=== PATIENT | female | born 1980 | race Caucasian/White ===

== ENCOUNTER 2020-07-12 16:44 | Inpatient (IN) | payer OTHER, SELFPAY ==
[2020-07-12 18:44] VITALS: BMI 24.3
[2020-07-13] VITALS (17 sets, daily range): BP systolic 119–164; BP diastolic 69–92; PULSE 46–83; RESP 16–19; TEMP 35.8–36.5; O2SAT 94–100
[2020-07-13] MEDS: Morphine Sulfate 4 MG/ML CARTRIDGE 3 MG IVPUSH ×2 (03:35→09:06)
[2020-07-13] MEDS: ondansetron HCL 4 MG/2 ML VIAL IVPUSH (03:35)
[2020-07-13] MEDS: Piperacillin Sodium/Tazobactam 3.375 GM in 0.9 % Sodium Chloride 50 ML IV (03:35)
[2020-07-13] MEDS: Lactated Ringers 1,000 ML 80 ML IVCONT ×2 (06:44→16:14)
--- NOTE | 2020-07-13 09:04 | PM.PNGS ---
Subjective Subjective Interval history: had pain overnight comfortable now - got pain meds Physical Exam Vital Signs and I&O and Narrative: Vital Signs and I&O: Vital Signs Temp 97.4 F 07/13/20 04:00 Pulse 60 07/13/20 04:00 Resp 16 07/13/20 06:48 BP 119/69 07/13/20 04:00 Pulse Ox 99 07/13/20 04:00 Intake & Output 07/12/20 07/13/20 07/13/20 18:59 06:59 18:59 Intake Total 170 / 170 Balance 170 / 170 Weight 136 lb 15.994 oz Intake: Intake, Oral [place] unt 120 / 120 Intake, IV Amoun t 50 / 50 Piperacillin S odium/Tazobactam 50 / 50 3.375 gm In 0. 9 % Sodium Chloride 50 ml @ 100 mls/hr IV Q6H ROBINA Rx#:[id number] Other: Number of Unmeas ured Voids 1 Urine Bathroom Urine Color Yellow Body Mass Index 24.3 Eyes: Sclerae: abnormal sclerae Cardio: Rhythm: regular rhythm GI: Palpation (GI): Soft to palpation, Tenderness to palpation present (GI) in the epigastrum and in the RUQ, no guarding and No Rebound tenderness present Progress Note: A&P Assessment and plan (1) Gallstone: Problem details: CT scan shows gallstone in neck likely causing pain no other pathology Status: Acute Assessment and Plan: will proceed with lap nona today explained technique of procedure, poss. conversion to open reviewed risks including but not limited to bleeding, infections, bowel injury, injury to urinary tract and liver she has given consent Fall Risk Details Current Medications: Current Medications Generic Name Dose Route Start Last Admin Trade Name Freq PRN Reason Stop Dose Admin Acetaminophen 650 mg 07/13/20 00:00 Acetaminophen 325 Mg Tablet PO Q6H PRN Fever Lactated Ringer's 1,000 mls @ 80 mls/hr 07/13/20 06:00 07/13/20 06:44 Lr IVCONT 80 mls/hr .[id number] ROBINA Administration Piperacillin Sod/Tazobactam 50 mls @ 100 mls/hr 07/13/20 00:00 07/13/20 06:49 Sod 3.375 gm/ Sodium Chloride IV Infused Q6H ROBINA Infusion Morphine Sulfate 3 mg 07/13/20 00:00 07/13/20 03:35 Morphine Sulfate 4 Mg/Ml Cartridge IVPUSH 3 mg Q3H PRN Administration Pain, Severe (Pain Scale 7-10) Ondansetron HCl 4 mg 07/13/20 00:00 07/13/20 03:35 Ondansetron Hcl 4 Mg/2 Ml Vial IVPUSH 4 mg Q8H PRN Administration Nausea Oxycodone HCl 5 mg 07/13/20 00:00 Oxycodone Hcl Immed Release 5 Mg Tablet PO Q4H PRN Pain, Moderate (Pain Scale 4-6 Time Spent With Patient Time: Total time spent is greater than 50% in coordination of care (as documented) at patient's floor/unit and/or counseling patient: Time with patient: 15 - 24 minutes
--- NOTE | 2020-07-13 11:59 | MHC.CM.PN ---
pt lives c her son in her home. she reports being independent in her care. she works a job and drives a car. pt's son a family that live in the area can help her c any needs she may have. this will include a ride home at dc. pt denies the need for vna at dc. dc plan is home no svcs. cm to cont. to follow.
--- NOTE | 2020-07-13 12:17 | HO.ANESPROP2 ---
FORMERLY [facility] Social History Social History Advance Directives: No Advance Directives Information Provided: No service: No Current occupational status: employed Meds Allergies Allergy/AdvReac Type Severity Reaction Status Date / Time Sulfa (Sulfonamide Allergy Unknown Hives Unverified 07/12/20 21:49 Antibiotics) [SULFA (SULFONAMIDE ANTIBIOTICS)] Home Medications Medication Instructions Recorded Confirmed Type citalopram [Celexa] 20 mg PO DAILY 07/12/20 07/12/20 History tizanidine [Zanaflex] 6 mg PO TID 07/12/20 07/12/20 History Exam Exam Date and Time: July 13, 2020 1217 Height,Weight and Vital Signs: Height 5 ft 3 in Weight 62.142 kg Last Vital Signs Temp 96.5 F L 07/13/20 08:00 Pulse 60 07/13/20 08:00 Resp 19 07/13/20 08:00 BP 128/74 07/13/20 08:00 Pulse Ox 98 07/13/20 08:00 Airway Mallampati Class: II TM Dist: >3cm Neck ROM: Full Loose/Missing/Broken Teeth: No Heart: rrr cta Assessment and Plan Assessment Anesthesia Assessment: Anesthesia Plan Discussed, Consent Obtained and Chart Reviewed Final Anesthetic Review NPO: Yes ASA Class: II Final Preanesthetic Review: No Changes in Pt Med Stat, Meds & Allergies Reviewed, Consent Obtained/Reviewed, Med/Surg/Anes Hx Reviewed and Anes Risks/Benef Reviewed Patient Risk: Intermediate Procedure Risk: Low Assessment/Block/Sedation in SS: Assess/Block/Sedation-SS Anesthetic Plan Anesthetic Plan: GA Disposition: Standard PACU
[2020-07-13] MEDS: LORazepam 2 MG/ML VIAL 1 MG IVPUSH (13:35)
--- NOTE | 2020-07-13 13:37 | PM.OP ---
Brief Operative Note Date of procedure: 07/13/20 Pre-op diagnosis: gallstones Post-op diagnosis: other (acute cholecystitis) Procedure: laparoscopic cholecystectomy Anesthesia: SIERRA Surgeon: Hao Glass Community Advocate: Judith Porras Estimated blood loss (mL): 20 Urine output (mL): 0 Pathology: other (gallbladder) Condition: stable Disposition: PACU
--- NOTE | 2020-07-13 17:34 | PM.PNGS ---
Subjective Subjective Interval history: pt underwent uneventful lap nona earlier says she has incisional pain but ready to go home tolerating diet now Physical Exam Vital Signs and I&O and Narrative: Vital Signs and I&O: Vital Signs Temp 96.7 F L 07/13/20 16:04 Pulse 75 07/13/20 16:04 Resp 18 07/13/20 16:04 BP 151/85 H 07/13/20 16:04 Pulse Ox 100 07/13/20 16:04 Intake & Output 07/12/20 07/13/20 07/13/20 18:59 06:59 18:59 Intake Total 170 / 170 880 / 880 Output Total 0 / 0 Balance 170 / 170 880 / 880 Urine Output (Aver age ml/kg/hr) 0.00 Weight 136 lb 15.994 oz Intake: Intake, Oral [place] unt 120 / 120 120 / 120 Intake, IV Amoun t 50 / 50 760 / 760 Piperacillin S odium/Tazobactam 50 / 50 3.375 gm In 0. 9 % Sodium Chloride 50 ml @ 100 mls/hr IV Q6H ROBINA Rx#:[id number] Lactated Ringe rs 1,000 ml @ 80 760 / 760 mls/hr IVCONT .[id number] ROBINA Rx#: [id number] Output: Output, Urine Am ount 0 / 0 Other: Meal Refused No NPO No Breakfast % Eate n 100% Lunch % Eaten 100% Number of Unmeas ured Voids 1 Urine Bathroom Urine Color Yellow Body Mass Index 24.3 Const: Other: awake, alert, looks comfortable GI: Other: abd soft, dressings dry Progress Note: A&P Assessment and plan (1) Gallstone: Problem details: CT scan shows gallstone in neck likely causing pain no other pathology Status: Acute Assessment and Plan: S/P lap nona. She is doing well postop. Has been stable - she wants to go home Looks well. Will dc home. Ffup instructions given. Fall Risk Details Current Medications: Current Medications Generic Name Dose Route Start Last Admin Trade Name Freq PRN Reason Stop Dose Admin Acetaminophen 650 mg 07/13/20 00:00 Acetaminophen 325 Mg Tablet PO Q6H PRN Fever Fentanyl 50 mcg 07/13/20 13:59 07/13/20 14:03 Fentanyl Citrate/Pf 50 Mcg/Ml Vial IVPUSH 25 mcg Q5M PRN Administration Pain, Severe (Pain Scale 7-10) Lactated Ringer's 1,000 mls @ 80 mls/hr 07/13/20 06:00 07/13/20 16:14 Lr IVCONT 80 mls/hr .[id number] ROBINA Administration Morphine Sulfate 3 mg 07/13/20 00:00 07/13/20 09:06 Morphine Sulfate 4 Mg/Ml Cartridge IVPUSH 3 mg Q3H PRN Administration Pain, Severe (Pain Scale 7-10) Ondansetron HCl 4 mg 07/13/20 00:00 07/13/20 03:35 Ondansetron Hcl 4 Mg/2 Ml Vial IVPUSH 4 mg Q8H PRN Administration Nausea Oxycodone HCl 5 mg 07/13/20 00:00 Oxycodone Hcl Immed Release 5 Mg Tablet PO Q4H PRN Pain, Moderate (Pain Scale 4-6 Oxycodone HCl 5 mg 07/13/20 16:09 Oxycodone Hcl Immed Release 5 Mg Tablet PO Q4H PRN Pain, Moderate (Pain Scale 4-6 Time Spent With Patient Time: Total time spent is greater than 50% in coordination of care (as documented) at patient's floor/unit and/or counseling patient: Time with patient: 15 - 24 minutes
--- NOTE | 2020-07-14 00:57 | OP_ITS ---
SURGEON: Hao Glass MD INDICATIONS: The patient is a 40-year-old female, who has been having right upper quadrant pain for several weeks, worsening over the past week or so. She had actually gone to the emergency room twice last week. She was eventually referred to me after CAT scan showed gallstones without cholecystitis. She was seen in the office yesterday, but seemed to be extremely uncomfortable with the pain. I therefore admitted her and proceeded to do a CAT scan. This had shown a large stone that seemed to be impacted at the neck of the gallbladder. She continued to have significant pain, but her LFTs were unremarkable. Therefore, I scheduled her for cholecystectomy today. She understood the technique of laparoscopic cholecystectomy, possible open cholecystectomy. She was aware of the risks, benefits, and alternatives. PREOPERATIVE DIAGNOSIS: Gallstones with pain. POSTOPERATIVE DIAGNOSIS: Acute calculous cholecystitis. PROCEDURE PERFORMED: Laparoscopic cholecystectomy. ESTIMATED BLOOD LOSS: COMPLICATIONS: ANESTHESIA: ASSISTANTS: Judith Porras PA-C. SPECIMENS: DESCRIPTION OF PROCEDURE: She was brought to the operating room, placed supine on the table under general anesthesia via endotracheal tube. The abdomen was prepped and draped in usual sterile fashion. A surgical time-out was done. The patient received Cefotan 2 g IV preoperatively. A small supraumbilical incision made in the skin using blade #15. This was carried down with blunt dissection to the fascia. The fascia was incised. The peritoneum was entered. Through this incision, a Paola port was introduced. Pneumoperitoneum was introduced to a pressure of 15 mmHg. From here, the rest of procedure was done under vision with the laparoscope. We were using a 10-degree 10 mm flat scope. With laparoscopic visualization, we proceeded to insert a 5/12 mm port on epigastric area below the subcostal margin as well as 5 mm ports through small incisions below the subcostal margin along the anterior axillary line and the midclavicularline. Graspers were placed through working ports. The patient was placed in head up, [id number] position. The gallbladder was seen. It was markedly distended and appeared edematous and congested. I was, however, able to apply a grasper at the fundus. This was used to retract the gallbladder cephalad. We were able to apply another grasper toward the fascia of the gallbladder and this was retracted laterally. At this point therefore, the gallbladder was being retracted in a cephalad and lateral fashion to put the cystic duct on stretch. There was note of significant edema of the wall and congestion, however, we could see what appeared to be the cystic duct with surrounding periareolar tissue. We carefully dissected the cystic duct to carefully define this. We used the [place] dissector to achieve this. The cystic artery was noted to actually run alongside this a little more anterior than normal. We carefully defined the cystic artery as well. We applied clips and 2 clips being applied distally and the cystic artery was transected with clips. By doing so, we were able to have better visualization, exposure of the cystic duct. We continued to carefully define this with the [place] dissector. We were able to achieve a critical view of the hepatocystic triangle. There were no other tubular structures in this area. The confluence of the cystic duct with neck of the gallbladder was clearly seen. We proceeded to therefore apply clips on the cystic duct with 2 clips being applied distally and the cystic duct was transected between clips. I proceeded to continue to retract the gallbladder down the liver bed. We divided across the hilum by using the electrocautery spatula until we reached the interface of the liver and the gallbladder. I made incision on the peritoneum of the gallbladder using the electrocautery and proceeded to separate the gallbladder from the liver bed along this plane of dissection in a combination of electrocautery as well as with the blunt dissection with the tip of the spatula. We proceeded slowly to separate the gallbladder from the liver bed. There was one small bleeding branch that we had to clip along the way. We continued to dissect all the way to the fundus until the entire gallbladder was completely . This was delivered and sent as specimen. This had been delivered through the umbilical incision. We re-inserted all ports and re-insufflated. We lifted the liver edge and examined the subhepatic space. This was noted to be dry with clips in place. I examined all four quadrants. There was no other pathology seen. There was no evidence of any bowel injury or any bile leak. Again, we continued to examine the area of dissection and this remained hemostatic. Once this was confirmed, we proceeded to therefore desufflate the port sites. The fascia of the umbilical incision was closed with [id number] Dexon 0 stitch. Skin closure was achieved in all incisions using Dexon 4-0 sutures.. Steri-Strips and dressings were applied. All incisions were infiltrated with Marcaine 0.5% for postop analgesia. The procedure was completed. The patient tolerated the procedure well. There were no complications noted. Initial and final count of sponges and instruments were correct. Estimated blood loss was minimal. Thepatient was extubated without difficulty in the operating room and transferred to recovery room with stable vital signs. MD JACKY Elizabeth/MALLORIE / [id number] MTDD
--- NOTE | 2020-07-17 11:03 | PM.DS ---
DS: Providers Provider Date of admission: 07/12/20 16:44 Primary care physician: Elder Govea MD DS: Diagnosis Discharge Diagnosis (1) Gallstone: Status: Acute Problem details: CT scan shows gallstone in neck likely causing pain no other pathology (2) S/P laparoscopic cholecystectomy: Status: Acute DS: Summary Hospital Course Hospital Course: Brief HPI: 40-year-old female admitted because of abdominal pain. She went to the ED 07/06/2020 because of upper abdominal pain. She reports she had this periodic pain for about 3 months now. She was told she probably had irritable bowel syndrome and was discharged. She went to the urgent care center and saw Dr. Carpenter the following day and she was set up for an ultrasound. However, she continued to have significant pain so she went to the ED again on 07/07/2020. Ultrasound was done then which showed a gallstone in the fundus without signs of cholecystitis. She did have white count of 13 then and her LFTs were normal. She has continued to have pain which had been progressing over time and saw Dr. Glass in the office. She appeared to be in significant pain. She was tender in the right upper quadrant and epigastric area. She has had poor oral intake because of the pain. It was therefore recommended to be directly admitted to the hospital for further treatment of the likely acute cholecystitis. The patient was admitted to the surgical service under Dr. Glass. She was made NPO, started on IVF and IV morphine for pain control. CT scan of the abdomen/pelvis was obtained which revealed a 2.7cm gallstone in the gallbladder neck without gallbladder wall thickening. The patient had persistence of the pain the following day and it was recommended to proceed with laparoscopic cholecystectomy, possible open. She agreed and was added onto the OR schedule for that day. On 07/13/20, a laparoscopic cholecystectomy was performed by Dr. Hao Glass without complication. The patient tolerated the procedure well and was admitted to the medical/surgical floor for observation. She was seen later that day and felt significantly improved. She was clinically appearing well and her pain was controlled on PO analgesics. Her abdomen was benign with intact dressings. She felt ready for discharge. She was discharged to home on 07/13/20 in stable condition. Status at Discharge Functional status at discharge: independent ambulation Overall status at discharge: patient is progressing back to baseline Time Spent with Patient Time attestation: Total time spent providing and/or coordinating discharge services: Time spent: Less than 30 minutes Specific discharge activities: no heavy lifting Physical Exam Vital Signs and I&O and Narrative: Vital Signs and I&O: Vital Signs Temp 96.7 F L 07/13/20 16:04 Pulse 75 07/13/20 16:04 Resp 18 07/13/20 16:04 BP 151/85 H 07/13/20 16:04 Pulse Ox 100 07/13/20 16:04 Body Mass Index 24.3 Const: General: comfortable, no acute distress and alert Orientation/consciousness: patient oriented x3 Eyes: Sclerae: sclerae normal Resp: Effort & Inspection: normal respiratory effort Cardio: Rate: regular rate GI: Inspection: Yes other (4 surgical dressings intact, dry) Palpation (GI): Soft to palpation, Tenderness to palpation present (GI) (mild, incisional), no guarding and No Rebound tenderness present Skin: General skin exam: no rashes or lesions noted Neuro: General: patient oriented x3 Extrem: General: Yes no clubbing, cyanosis or edema DS: Data Data Completed and Pending Pending studies at discharge: Pending at discharge 07/13/20 13:31 Surgical [PTH] Routine PATHOLOGY: Gallbladder: Chronic cholecystitis; cholelithiasis. Discharge Plan Discharge Patient Disposition: Home, Self-Care Referrals: Hao Glass MD [Physician] - 2 Weeks Elder Govea MD [Primary Care Provider] - (call for appointment upon discharge) Discharge Medications: New oxycodone-acetaminophen [Percocet] 5-325 mg tablet 1 tab PO Q4-6H PRN (Reason: pain) Qty: 24 RF: 0 Continued citalopram [Celexa] 20 mg Tablet 20 mg PO DAILY RF: 0 tizanidine [Zanaflex] 6 mg Capsule 6 mg PO TID RF: 0 Discharge Orders: Discharge Order (Routine); Ordered 07/13/20 Ordered By: Hao Glass Activity on Discharge: No heavy lifting Patient Instructions: Laparoscopic Cholecystectomy (DC) Discharge Date/Time: 07/13/20 18:01 Visit Report Forms: Patient Portal Discharge page Care Plan Goals: Return to baseline activity. Health Concerns: Acute cholecystitis, s/p laparoscopic cholecystectomy Plan of Treatment: Pain control, advance diet, increase activity
== END 2020-07-13 18:01 | disposition home or self-care (01) | DRG 263 ==
PROVIDERS: Admitting Provider Surgery; PCP Internal Medicine; Visit Provider Surgery
PROC: 0FT44ZZ Resection of Gallbladder, Percutaneous Endoscopic Approach (ICD-10-PCS; CPT 47562; principal; 2020-07-13 12:30)
DX: K80.00 Calculus of gallbladder with acute cholecystitis without obstruction (principal); Q79.60 Ehlers-Danlos syndrome, unspecified; F41.9 Anxiety disorder, unspecified; N80.9 Endometriosis, unspecified; Z88.2 Allergy status to sulfonamides; Z79.899 Other long term (current) drug therapy
CPT/HCPCS: 74177; 80048; 80076; 82150; 83690; 85025; 88304; 90686; J0131; J1100; J1885; J2060; J2250; J2405; J2543; J3010; Q9967

== ENCOUNTER → 2020-08-30 11:26 | Outpatient (BNVA) | payer OTHER, SELFPAY | PROVIDERS: PCP Internal Medicine; Visit Provider Anesthesiology | DX: Z76.89 Persons encountering health services in other specified circumstances (principal) ==

== ENCOUNTER 2020-09-05 08:19 | Outpatient (RCR) | payer OTHER, SELFPAY | END 2020-09-11 08:20 | disposition home or self-care (01) | LOC: HO.PAOS 08:19 | PROVIDERS: Visit Provider Counselor Mental Health | DX: F41.1 Generalized anxiety disorder (principal) | CPT/HCPCS: 90791 ==

== ENCOUNTER 2020-09-19 07:58 | Outpatient (REF) | payer OTHER, SELFPAY ==
[2020-09-19 08:34] LABS: COVID-19 Test Negative (Negative); IDNOW Serial# 55D5AD1C
== END 2020-09-19 07:59 | disposition home or self-care (01) ==
LOC: HO.EMPCOV 07:58
PROVIDERS: Visit Provider Internal Medicine
DX: Z20.828 Contact with and (suspected) exposure to other viral communicable diseases (principal)
CPT/HCPCS: 87635; C9803

== ENCOUNTER → 2020-09-20 08:33 | Outpatient (BNVA) | payer OTHER, SELFPAY | PROVIDERS: PCP Internal Medicine; Visit Provider Surgery | DX: Z76.89 Persons encountering health services in other specified circumstances (principal) ==

== ENCOUNTER 2020-09-20 08:49 | Emergency (ER) | payer OTHER, SELFPAY ==
--- NOTE | 2020-09-20 09:05 | CT_ITS ---
EXAMINATION: CT ABDOMEN AND PELVIS WITH CONTRAST CLINICAL INFORMATION: Right lower quadrant pain COMPARISON: Previous CT scan of the abdomen and pelvis most recent 07/12/2020 and abdominal ultrasound June 2020 and pelvic ultrasound March 2020 TECHNIQUE: Multidetector volumetric images were obtained from the superior aspect of the liver through the pubic symphysis following administration 85 mL of Omnipaque 350 intravenous contrast. Sagittal and coronal reformatted images were obtained on the technologist's workstation. Oral contrast: Yes This CT examination was performed using dose optimization techniques as appropriate, variously including the following: *Automated exposure control *Adjustment of mA and/or kV according to patient size (this includes techniques or standardized protocols for targeted exams where dose is matched to indication/reason for exam; i.e. extremities or head) *Use of iterative reconstruction technique DLP: 444 mGy-cm FINDINGS: LUNG BASES: The visualized lung bases are unremarkable. LIVER, GALLBLADDER, AND BILIARY TREE: There is a small 5 mm low-attenuation lesion in the medial segment of the left lobe of the liver axial image 18 series 3 that is stable. The gallbladder has been removed. No fluid collection in the gallbladder fossa is seen. There is no intra or extrahepatic biliary duct dilatation. PANCREAS: Unremarkable. SPLEEN: There is a small peripheral 6 mm low-attenuation lesion in the superior spleen probably representing a cyst that is stable. ADRENAL GLANDS: Unremarkable. KIDNEYS AND URETERS: The kidneys are normal in size, shape, and attenuation. No hydronephrosis, hydroureter, or calculi seen. No perinephric stranding. BLADDER: Unremarkable. GASTROINTESTINAL TRACT: There is mild diverticulosis of the colon. No evidence of diverticulitis is seen. The small and large bowel are otherwise unremarkable. The appendix is unremarkable. ABDOMINAL WALL: There is a small umbilical hernia containing fat. LYMPH NODES: Normal. VASCULAR: Unremarkable. PELVIC VISCERA: Whole there is a small amount of fluid in the pelvis. There is a irregularly-shaped 1.4 x 1.7 cm right adnexal cyst with slightly thickened enhancing wall probably representing an involuting cyst. The uterus and adnexa are otherwise unremarkable. OSSEOUS STRUCTURES: Unremarkable. CT/CT abdomen pelvis w con IMPRESSION: Interval cholecystectomy. No fluid collection in the gallbladder fossa or biliary duct dilatation seen. Mild diverticulosis of the colon. No evidence of diverticulitis. 1.4 x 1.7 cm slightly complex right adnexal cyst probably representing an involuting physiologic cyst and small amount of fluid in the pelvis.
[2020-09-20 09:11] VITALS: BP 132/71; PULSE 74; RESP 18; TEMP 37.1; O2SAT 100; BMI 23.0
--- NOTE | 2020-09-20 09:12 | ED_ITS ---
HPI - Abdominal Pain General Chief Complaint: Abdominal Pain Stated Complaint: abd pain Time Seen by Provider: 09/20/20 09:04 Source: patient Mode of arrival: ambulatory Limitations: no limitations History of Present Illness MD elicited complaint: abdominal pain Pertinent past history: other (endometriosis ) Onset (ago): day(s) (started on Friday and has worsened) Pain Consistency: constant Location: RLQ Severity: moderate Quality: stabbing Radiation: none Migration to: no migration Exacerbating factors: movement Relieving factors: nothing Context: recent surgery/procedure (2 months ago had cholecystectomy) Associated symptoms: nausea and vomiting Related Data Home Medications Medication Instructions Recorded Confirmed citalopram [Celexa] 20 mg PO DAILY 07/12/20 08/30/20 tizanidine [Zanaflex] 6 mg PO TID 07/12/20 08/30/20 hydrocodone 5 mg-acetaminophen 325 1 - 2 tab PO Q4H PRN 07/27/20 08/30/20 mg tablet Previous Rx's Medication Instructions Recorded oxycodone-acetaminophen [Percocet] 1 tab PO Q4-6H PRN #24 tab 07/13/20 lidocaine 5 % topical patch 2 patch TOPICAL DAILY 30 Days #60 08/30/20 patch hydrocodone-acetaminophen 1 tab PO Q6H PRN #12 tab 09/20/20 ondansetron 4 mg PO Q8H PRN #20 tab 09/20/20 Allergies Allergy/AdvReac Type Severity Reaction Status Date / Time Sulfa (Sulfonamide Allergy Unknown Hives Verified 09/20/20 08:39 Antibiotics) [SULFA (SULFONAMIDE ANTIBIOTICS)] Review of Systems Review of Systems Constitutional : No Weight loss, No Fever, No Chills ENT/Mouth : No sore throat, No Rhinorrhea Eyes: No Swelling, No Redness Cardiovascular : No Chest Pain, No SOB, NoEdema Respiratory : No Cough, No Sputum, No Wheezing Gastrointestinal : Positive Nausea, Positive Vomiting, no Diarrhea, positive abdominal Pain, No Hematochezia, No Melena Genitourinary : No Dysuria, No Urinary Frequency, No Hematuria, No Urgency Musculoskeletal : No joint pain, No Myalgias, No Joint Swelling Skin : No Skin Lesions, No rash Neuro : No Weakness, No Numbness, No Dizziness, No Headache Psych : No Anxiety/Panic, No Depression Heme/Lymph: No Bruising, No Lymphadenopathy Endocrine : No Polyuria, No Polydipsia All other systems reviewed and are negative. Physical Exam Vital Signs: Vital Signs: Last Vital Signs Temp 98.6 F 09/20/20 12:24 Pulse 71 09/20/20 12:24 Resp 16 09/20/20 12:24 BP 150/98 H 09/20/20 12:24 Pulse Ox 100 09/20/20 12:24 Body Mass Index 23.0 Appearance: Alert. Oriented X3. No acute distress. Eyes: Pupils equal, round and reactive to light. ENT: Pharynx normal. Neck: Normal inspection. Neck supple. CVS: Normal heart rate and rhythm. Pulses normal. Respiratory: No respiratory distress. Breath sounds normal. Abdomen: Soft and moderate RLQ pain, no rebound or guarding Skin: Skin warm and dry. Normal skin color. Normal skin turgor. Extremities: No lower extremity edema. No calf ttp Neuro: Oriented X 3. No motor deficit. No sensory deficit. Course Course Course Narrative: will obtain US to r/o torsion patient is still having pain, Dr. Glass has examined no indication for surgical admission, if US stable other than cyst can go home with oral pain medications no torsion tolerating PO pain medications, stable for DC MDM - Abdominal Pain MDM Narrative Medical decision making narrative: 40 yo female with hx of endometriosis, chronic back DDD, Ehler's Danlos here with worsening RLQ pain sent over by Dr. Glass to r/o appendicitis at this time will obtain labs, UA, CT scan for appendicitis, IV morphine for pain dispo per results and findings. Differential Diagnosis Differential diagnosis: Likely abdominal pain, acute appendicitis, endometriosis and ovarian cyst Lab Data Result diagrams: 09/20/20 09:18 09/20/20 09:18 Labs: Lab Results 09/20/20 09/20/20 09/20/20 Range/Units 09:18 09:18 09:18 WBC 8.1 (4.8-10.8) X10*3/uL RBC 4.28 (4.20-5.50) X10*6/uL Hgb 14.1 (12.0-16.0) g/dl Hct 39.4 (37-47) % MCV 92.1 (80-98) fL MCH 32.9 (27.0-33.0) pg MCHC 35.8 H (31.0-35.0) g/dl RDW 11.9 (11.0-16.0) % Plt Count 321 (160-400) X10*3/uL MPV 9.8 (9.4-12.3) fL Immature Gran % (Auto) 0.1 (0.0-0.4) % Neut % (Auto) 62.9 (45-73) % Lymph % (Auto) 28.0 (20-40) % [place] % (Auto) 7.6 (2-11) % Eos % (Auto) 0.7 (0-4) % Baso % (Auto) 0.7 (0-2) % Lymph # (Auto) 2.3 (1.2-4.9) X10*3/uL [place] # (Auto) 0.6 (0.1-1.2) X10*3/uL Eos # (Auto) 0.1 (0.0-0.4) X10*3/uL Baso # (Auto) 0.1 (0.0-0.2) X10*3/uL Abs Immat Gran (auto) 0.01 (0.00-0.03) X10*3/uL Absolute Neuts (auto) 5.1 (2.0-8.3) X10*3/uL Absolute Nucleated RBC 0.000 (0.0-0.012) X10*3/uL Nucleated RBC % (auto) 0.0 (0.0-0.2) /100WBC PT 11.7 (10.8-13.0) SEC INR 1.0 (0.9-1.1) APTT 32.9 (24.1-38.0) SEC Sodium 137 (135-145) mmol/L Potassium 3.7 (3.3-5.1) mmol/l Chloride 107 (96-108) mmol/L Carbon Dioxide 21 L (22-29) mmol/L Anion Gap 13 (12-20) BUN 7 L (9-16) mg/dL Creatinine 0.77 (0.5-1.4) mg/dL Estim Creat Clear Calc 80.3 Estimated GFR > 60 Random Glucose 92 (60-115) mg/dL Calcium 9.5 (8.4-10.2) mg/dL Magnesium 2.0 (1.6-2.6) mg/dL Total Bilirubin 0.8 (0.0-1.0) mg/dL Direct Bilirubin 0.4 (0.0-0.5) mg/dL AST 18 (5-31) U/L ALT 12 (0-31) U/L Alkaline Phosphatase 80 (39-117) U/L Total Protein 7.2 (6.5-8.0) g/dL Albumin 4.5 (3.5-5.0) g/dL Lipase 24 (8-78) U/L Urine Color Urine Appearance Urine pH (5.0-8.0) Ur Specific [place] (1.005-1.025) Urine Protein (NEG-TRACE) MG/DL Urine Glucose (UA) (NEG) MG/DL Urine Ketones (NEG) MG/DL Urine Blood (NEG) Urine Nitrite (NEG) Ur Leukocyte Esterase (NEG) Urine RBC (0) /HPF Urine WBC (0-4) /HPF Ur Squamous Epith Cells /LPF Urine Bacteria /LPF Urine Test (NEGATIVE) 09/20/20 Range/Units 09:29 WBC (4.8-10.8) X10*3/uL RBC (4.20-5.50) X10*6/uL Hgb (12.0-16.0) g/dl Hct (37-47) % MCV (80-98) fL MCH (27.0-33.0) pg MCHC (31.0-35.0) g/dl RDW (11.0-16.0) % Plt Count (160-400) X10*3/uL MPV (9.4-12.3) fL Immature Gran % (Auto) (0.0-0.4) % Neut % (Auto) (45-73) % Lymph % (Auto) (20-40) % [place] % (Auto) (2-11) % Eos % (Auto) (0-4) % Baso % (Auto) (0-2) % Lymph # (Auto) (1.2-4.9) X10*3/uL [place] # (Auto) (0.1-1.2) X10*3/uL Eos # (Auto) (0.0-0.4) X10*3/uL Baso # (Auto) (0.0-0.2) X10*3/uL Abs Immat Gran (auto) (0.00-0.03) X10*3/uL Absolute Neuts (auto) (2.0-8.3) X10*3/uL Absolute Nucleated RBC (0.0-0.012) X10*3/uL Nucleated RBC % (auto) (0.0-0.2) /100WBC PT (10.8-13.0) SEC INR (0.9-1.1) APTT (24.1-38.0) SEC Sodium (135-145) mmol/L Potassium (3.3-5.1) mmol/l Chloride (96-108) mmol/L Carbon Dioxide (22-29) mmol/L Anion Gap (12-20) BUN (9-16) mg/dL Creatinine (0.5-1.4) mg/dL Estim Creat Clear Calc Estimated GFR Random Glucose (60-115) mg/dL Calcium (8.4-10.2) mg/dL Magnesium (1.6-2.6) mg/dL Total Bilirubin (0.0-1.0) mg/dL Direct Bilirubin (0.0-0.5) mg/dL AST (5-31) U/L ALT (0-31) U/L Alkaline Phosphatase (39-117) U/L Total Protein (6.5-8.0) g/dL Albumin (3.5-5.0) g/dL Lipase (8-78) U/L Urine Color YELLOW Urine Appearance CLEAR Urine pH 7.0 (5.0-8.0) Ur Specific [place] 1.010 (1.005-1.025) Urine Protein NEG (NEG-TRACE) MG/DL Urine Glucose (UA) NEG (NEG) MG/DL Urine Ketones NEG (NEG) MG/DL Urine Blood NEG (NEG) Urine Nitrite NEG (NEG) Ur Leukocyte Esterase TRACE H (NEG) Urine RBC 0 (0) /HPF Urine WBC 0-2 (0-4) /HPF Ur Squamous Epith Cells 1+ /LPF Urine Bacteria TRACE /LPF Urine Test NEGATIVE (NEGATIVE) Discharge Plan Discharge Clinical Impression: Right lower quadrant pain, Ovarian cyst Patient Disposition: Home, Self-Care Instructions: Ovarian Cyst (ED) Additional Instructions: No evidence of torsion. 1.7 x 1.9 x 1.7 cm slightly complex right ovarian cyst. This is irregularly-shaped and may represent an involuting cyst. Probable small uterine fibroid similar to previous exam. Small amount of fluid in the pelvis. return to ED for any worsening symptoms or concerns please follow up with your provider for OBGYN Prescriptions: New hydrocodone-acetaminophen 5-325 mg tablet 1 tab PO Q6H PRN (Reason: pain) Qty: 12 RF: 0 ondansetron 4 mg tablet,disintegrating 4 mg PO Q8H PRN (Reason: nausea and vomiting) Qty: 20 RF: 0 No Action citalopram [Celexa] 20 mg Tablet 20 mg PO DAILY RF: 0 tizanidine [Zanaflex] 6 mg Capsule 6 mg PO TID RF: 0 oxycodone-acetaminophen [Percocet] 5-325 mg tablet 1 tab PO Q4-6H PRN (Reason: pain) Qty: 24 RF: 0 lidocaine 5 % adhesive patch,medicated 2 patch topical DAILY 30 Days Qty: 60 RF: 12 hydrocodone-acetaminophen 5-325 mg tablet 1 - 2 tab PO Q4H PRN (Reason: pain) RF: 0 Stand Alone Forms: Work/School Release [facility] Past Medical History Attestation statement: The following information was validated with the patient. Medical History Chronic pain syndrome Sonia-Danlos syndrome type III Postlaminectomy syndrome, cervical Right lower quadrant pain Spondylosis of cervical spine Surgical History (Updated 09/20/20 @ 10:51 by Khang Clark RN) History of arthroscopy of right knee History of bilateral fallopian tube excision History of cervical discectomy (~08/2015) History of cholecystectomy History of wisdom tooth extraction Social History Social History Household Members: Significant Other and Children Smoked in Last 30 Days: No Use of substances other than those prescribed or required for medical reasons: No Advance Directives: No Advance Directives Information Provided: No service: No Current occupational status: employed
[2020-09-20] MEDS: ondansetron HCL 4 MG/2 ML VIAL IVPUSH (09:25)
[2020-09-20] MEDS: 0.9 % Sodium Chloride 1,000 ML 999 ML IVCONT (09:25)
[2020-09-20] MEDS: Morphine Sulfate 4 MG/ML CARTRIDGE IVPUSH (09:25)
[2020-09-20 09:33] LABS: MANUAL DIFF FLAG NO
[2020-09-20 09:36] LABS: Basophils Absolute Auto 0.1 X10*3/uL (0.0-0.2); Basophils Percent Auto 0.7 % (0-2); Eosinophils Absolute Auto 0.1 X10*3/uL (0.0-0.4); Eosinophils Percent Auto 0.7 % (0-4); Hematocrit 39.4 % (37-47); Hemoglobin 14.1 g/dl (12.0-16.0); Imm Gran Abs Auto 0.01 X10*3/uL (0.00-0.03); Imm Gran Pct Auto 0.1 % (0.0-0.4); Lymphocytes Absolute Auto 2.3 X10*3/uL (1.2-4.9); Mean Corpuscular HGB Conc 35.8 g/dl (31.0-35.0); Mean Corpuscular Hemoglobin 32.9 pg (27.0-33.0); Mean Corpuscular Volume 92.1 fL (80-98); Mean Platelet Volume 9.8 fL (9.4-12.3); Monocytes Absolute Auto 0.6 X10*3/uL (0.1-1.2); Monocytes Percent Auto 7.6 % (2-11); Neutrophils Absolute Auto 5.1 X10*3/uL (2.0-8.3); Neutrophils Percent Auto 62.9 % (45-73); Platelet Count 321 X10*3/uL (160-400); Red Blood Count 4.28 X10*6/uL (4.20-5.50); Red Cell Distribution Width 11.9 % (11.0-16.0); White Blood Count 8.1 X10*3/uL (4.8-10.8)
[2020-09-20 09:39] LABS: Glucose Urine UA NEG (NEG); Leukocyte Esterase Urine TRACE (NEG); Nitrite Urine NEG (NEG); Urine Blood NEG (NEG); Urine Ketones NEG (NEG); Urine Protein NEG (NEG-TRACE)
[2020-09-20 09:40] LABS: Appearance Urine CLEAR; Color Urine YELLOW
[2020-09-20 09:42] LABS: Prothrombin Time 11.7 SEC (10.8-13.0)
[2020-09-20 09:45] LABS: Partial Thromboplastin Time 32.9 SEC (24.1-38.0)
[2020-09-20 09:49] LABS: Bacteria Urine TRACE /LPF; RBC Urine 0 /HPF (0); Squamous Epithelial Cell Urine 1+ /LPF; WBC Urine 0-2 /HPF (0-4)
[2020-09-20 10:01] LABS: Alanine Aminotransferase 12 U/L (0-31); Albumin Level 4.5 g/dL (3.5-5.0); Alkaline Phosphatase 80 U/L (39-117); Anion Gap 13 (12-20); Aspartate Amino Transferase 18 U/L (5-31); Bilirubin Direct 0.4 mg/dL (0.0-0.5); Bilirubin Total 0.8 mg/dL (0.0-1.0); Blood Urea Nitrogen 7 mg/dL (9-16); Calcium 9.5 mg/dL (8.4-10.2); Carbon Dioxide 21 mmol/L (22-29); Chloride 107 mmol/L (96-108); Creatinine Clr Calc Pharmacy 80.3; Estimated Glomerular Filt Rate > 60; Glucose Random 92 mg/dL (60-115); Lipase 24 U/L (8-78); Potassium 3.7 mmol/l (3.3-5.1); Sodium 137 mmol/L (135-145); Total Protein 7.2 g/dL (6.5-8.0)
[2020-09-20 10:07] VITALS: BP 139/76
[2020-09-20 10:12] VITALS: BP 131/75
[2020-09-20] MEDS: HYDROmorphone HCl 1 MG/ML SYRINGE IVPUSH (10:12)
[2020-09-20 10:27] LABS: UPreg QC Valid YES; Urine Pregnancy NEGATIVE (NEGATIVE)
[2020-09-20 10:44] VITALS: BP 159/68; PULSE 68; RESP 16; TEMP 37; O2SAT 100
[2020-09-20] MEDS: iohexoL 350 MG/ML 100 ML INFUS..BTL 85 ML IV (10:48)
--- NOTE | 2020-09-20 11:05 | PC.NURSE ---
Report taken. Pt resting in bed, states her pain has decreased s/p medication, denies nausea and other complaints. requested and given blanket. pending results of ct.
--- NOTE | 2020-09-20 11:34 | PC.NURSE ---
Pending eval by Dr. Glass
--- NOTE | 2020-09-20 12:07 | US_ITS ---
EXAMINATION: PELVIC ULTRASOUND CLINICAL INFORMATION: Right-sided pain. Evaluate for torsion. COMPARISON: Previous CT of the abdomen and pelvis from earlier the same day and pelvic ultrasound 04/03/2020 TECHNIQUE: Transabdominal and transvaginal pelvic ultrasound was performed. Transvaginal exam was performed for better visualization of the uterus and ovaries. Doppler color and grayscale evaluation of the ovarian vessels including waveform spectral analysis was performed. FINDINGS: The uterus is anteverted and measures 9.1 x 4.4 x 5.2 cm in dimension. Endometrial thickness is normal measuring 1 cm. There is a small 0.7 x 0.5 x 0.5 cm hypoechoic lesion in the left high uterine body probably representing a fibroid. This is similar to previous exam. No other focal uterine lesion is seen. There are nabothian cysts in the cervix. The right ovary measures 3.3 x 2.3 x 1.8 cm. There is a 1.7 x 1.9 x 1.7 cm slightly complex cyst with thickened wall and irregular shape. The left ovary is normal-appearing and measures 2.7 x 1.6 x 1.8 cm. Venous and arterial flow is documented to both ovaries and is normal. There is no evidence of torsion. There is a small amount of fluid in the pelvis. US/US pelvic ovarian doppler IMPRESSION: No evidence of torsion. 1.7 x 1.9 x 1.7 cm slightly complex right ovarian cyst. This is irregularly-shaped and may represent an involuting cyst. Probable small uterine fibroid similar to previous exam. Small amount of fluid in the pelvis.
[2020-09-20 12:24] VITALS: BP 150/98; PULSE 71; RESP 16; TEMP 37; O2SAT 100
[2020-09-20] MEDS: HYDROcodone Bit/Acetam 5/325 TABLET 1 TAB PO (12:41)
== END 2020-09-20 13:50 | disposition home or self-care (01) ==
PROVIDERS: Emergency Provider Emergency Medicine; PCP Internal Medicine
DX: N83.291 Other ovarian cyst, right side (principal); Q79.60 Ehlers-Danlos syndrome, unspecified; Z90.49 Acquired absence of other specified parts of digestive tract
CPT/HCPCS: 36415; 74177; 76830; 76856; 80048; 80076; 81001; 81025; 83690; 83735; 85025; 85610; 85730; 87086; 93975; 96361; 96374; 96375; 99284; J1170; J2270; J2405; Q9967

== ENCOUNTER → 2020-09-22 07:52 | Outpatient (BNVA) | payer OTHER, SELFPAY | PROVIDERS: PCP Internal Medicine; Visit Provider Obstetrics & Gynecology | DX: Z76.89 Persons encountering health services in other specified circumstances (principal) ==

== ENCOUNTER 2020-09-22 08:57 | Outpatient (REF) | payer OTHER, SELFPAY ==
--- NOTE | 2020-09-22 09:00 | US_ITS ---
EXAMINATION: PELVIC ULTRASOUND CLINICAL INFORMATION: Pelvic and perineal pain COMPARISON: Previous CT September of the abdomen and pelvis pelvic ultrasound March 2020 TECHNIQUE: Transabdominal and transvaginal pelvic ultrasound was performed. Transvaginal exam was performed for better visualization of the uterus and ovaries. FINDINGS: The uterus is anteverted and measures 9.2 x 5.3 x 6 cm in dimension. There is a 6 x 5 x 5 mm hypoechoic lesion in the left side of the uterine body suggestive of a small intramural fibroid. No other focal uterine lesion is seen. Endometrial thickness is normal measuring 1 cm. There are small nabothian cysts in the cervix. The right ovary measures 3.6 x 1.9 x 1.9 cm. There is a slightly complex 1.1 x 1.2 x 1.6 cm right ovarian cyst with a thickened wall probably representing a corpus luteum. The left ovary is normal-appearing and measures 1.7 x 2 x 1.9 cm. There is no fluid in the pelvis. US/US transvaginal IMPRESSION: Small uterine fibroid. Small right ovarian slightly complex cyst probably representing a physiologic corpus luteum.
--- NOTE | 2020-09-22 09:00 | US_ITS ---
EXAMINATION: PELVIC ULTRASOUND CLINICAL INFORMATION: Pelvic and perineal pain COMPARISON: Previous CT September of the abdomen and pelvis pelvic ultrasound March 2020 TECHNIQUE: Transabdominal and transvaginal pelvic ultrasound was performed. Transvaginal exam was performed for better visualization of the uterus and ovaries. FINDINGS: The uterus is anteverted and measures 9.2 x 5.3 x 6 cm in dimension. There is a 6 x 5 x 5 mm hypoechoic lesion in the left side of the uterine body suggestive of a small intramural fibroid. No other focal uterine lesion is seen. Endometrial thickness is normal measuring 1 cm. There are small nabothian cysts in the cervix. The right ovary measures 3.6 x 1.9 x 1.9 cm. There is a slightly complex 1.1 x 1.2 x 1.6 cm right ovarian cyst with a thickened wall probably representing a corpus luteum. The left ovary is normal-appearing and measures 1.7 x 2 x 1.9 cm. There is no fluid in the pelvis. US/US pelvic complete IMPRESSION: Small uterine fibroid. Small right ovarian slightly complex cyst probably representing a physiologic corpus luteum.
== END 2020-09-22 08:58 | disposition home or self-care (01) ==
LOC: HO.US 08:57
PROVIDERS: Visit Provider Obstetrics & Gynecology
DX: R10.2 Pelvic and perineal pain (principal)
CPT/HCPCS: 76830; 76856

== ENCOUNTER → 2020-10-18 10:43 | Outpatient (BNVA) | payer OTHER, SELFPAY | PROVIDERS: PCP Internal Medicine; Visit Provider Physician Assistant | DX: Z76.89 Persons encountering health services in other specified circumstances (principal) | CPT/HCPCS: 99202 ==

== ENCOUNTER → 2020-10-20 09:37 | Outpatient (BNVA) | payer OTHER, SELFPAY | PROVIDERS: PCP Internal Medicine; Visit Provider Physician Assistant Medical | DX: Q79.60 Ehlers-Danlos syndrome, unspecified (principal); M50.30 Other cervical disc degeneration, unspecified cervical region | CPT/HCPCS: 99213 ==

== ENCOUNTER → 2020-10-27 08:10 | Outpatient (BNVA) | payer OTHER, SELFPAY | PROVIDERS: Visit Provider Advanced Practice Midwife | DX: Z76.89 Persons encountering health services in other specified circumstances (principal) ==

== ENCOUNTER 2020-10-27 08:48 | Emergency (ER) | payer OTHER, SELFPAY ==
--- NOTE | 2020-10-27 | US_ITS ---
EXAMINATION: PELVIC ULTRASOUND WITH DOPPLER CLINICAL INFORMATION: Right lower quadrant pain COMPARISON: Previous exams most recent September 2020 TECHNIQUE: Transabdominal and transvaginal pelvic ultrasound was performed. Transvaginal exam was performed for better visualization of the uterus and ovaries. Doppler color and grayscale evaluation of flow to both ovaries including waveform spectral analysis was performed. FINDINGS: The uterus is anteverted and measures 8.8 x 5.4 x 5.2 cm in dimension. There is a small hypoechoic lesion in the left uterine fundus suggestive of a small fibroid. No other focal uterine lesion is seen. Endometrial thickness is normal estimated at 4 mm. There are small nabothian cysts in the cervix. The ovaries are normal-appearing. The left ovary measures 2.2 x 1.6 x 2.9 cm. The right ovary measures 2.6 x 1.9 x 2 cm. There are small follicles seen in both ovaries. Arterial and venous flow is documented to both ovaries and is normal. There is no evidence of torsion. There is a trace fluid in the pelvis. US/US transvaginal IMPRESSION: Small uterine fibroid otherwise unremarkable exam. No evidence of torsion.
[2020-10-27 09:22] VITALS: BP 154/83; PULSE 76; RESP 18; TEMP 36.6; O2SAT 100; BMI 22.4
--- NOTE | 2020-10-27 09:40 | US_ITS ---
EXAMINATION: PELVIC ULTRASOUND WITH DOPPLER CLINICAL INFORMATION: Right lower quadrant pain COMPARISON: Previous exams most recent September 2020 TECHNIQUE: Transabdominal and transvaginal pelvic ultrasound was performed. Transvaginal exam was performed for better visualization of the uterus and ovaries. Doppler color and grayscale evaluation of flow to both ovaries including waveform spectral analysis was performed. FINDINGS: The uterus is anteverted and measures 8.8 x 5.4 x 5.2 cm in dimension. There is a small hypoechoic lesion in the left uterine fundus suggestive of a small fibroid. No other focal uterine lesion is seen. Endometrial thickness is normal estimated at 4 mm. There are small nabothian cysts in the cervix. The ovaries are normal-appearing. The left ovary measures 2.2 x 1.6 x 2.9 cm. The right ovary measures 2.6 x 1.9 x 2 cm. There are small follicles seen in both ovaries. Arterial and venous flow is documented to both ovaries and is normal. There is no evidence of torsion. There is a trace fluid in the pelvis. US/US pelvic complete IMPRESSION: Small uterine fibroid otherwise unremarkable exam. No evidence of torsion.
--- NOTE | 2020-10-27 09:40 | US_ITS ---
EXAMINATION: PELVIC ULTRASOUND WITH DOPPLER CLINICAL INFORMATION: Right lower quadrant pain COMPARISON: Previous exams most recent September 2020 TECHNIQUE: Transabdominal and transvaginal pelvic ultrasound was performed. Transvaginal exam was performed for better visualization of the uterus and ovaries. Doppler color and grayscale evaluation of flow to both ovaries including waveform spectral analysis was performed. FINDINGS: The uterus is anteverted and measures 8.8 x 5.4 x 5.2 cm in dimension. There is a small hypoechoic lesion in the left uterine fundus suggestive of a small fibroid. No other focal uterine lesion is seen. Endometrial thickness is normal estimated at 4 mm. There are small nabothian cysts in the cervix. The ovaries are normal-appearing. The left ovary measures 2.2 x 1.6 x 2.9 cm. The right ovary measures 2.6 x 1.9 x 2 cm. There are small follicles seen in both ovaries. Arterial and venous flow is documented to both ovaries and is normal. There is no evidence of torsion. There is a trace fluid in the pelvis. US/US pelvic ovarian doppler IMPRESSION: Small uterine fibroid otherwise unremarkable exam. No evidence of torsion.
[2020-10-27 09:50] LABS: MANUAL DIFF FLAG NO
[2020-10-27 09:51] LABS: Basophils Absolute Auto 0.1 X10*3/uL (0.0-0.2); Basophils Percent Auto 0.6 % (0-2); Eosinophils Absolute Auto 0.1 X10*3/uL (0.0-0.4); Eosinophils Percent Auto 0.6 % (0-4); Hematocrit 40.7 % (37-47); Hemoglobin 14.4 g/dl (12.0-16.0); Imm Gran Abs Auto 0.02 X10*3/uL (0.00-0.03); Imm Gran Pct Auto 0.2 % (0.0-0.4); Lymphocytes Percent Auto 20.2 % (20-40); Mean Corpuscular HGB Conc 35.4 g/dl (31.0-35.0); Mean Corpuscular Hemoglobin 32.5 pg (27.0-33.0); Mean Corpuscular Volume 91.9 fL (80-98); Mean Platelet Volume 9.4 fL (9.4-12.3); Monocytes Absolute Auto 0.7 X10*3/uL (0.1-1.2); Monocytes Percent Auto 7.4 % (2-11); Neutrophils Absolute Auto 6.9 X10*3/uL (2.0-8.3); Platelet Count 331 X10*3/uL (160-400); Red Blood Count 4.43 X10*6/uL (4.20-5.50); Red Cell Distribution Width 11.6 % (11.0-16.0); White Blood Count 9.8 X10*3/uL (4.8-10.8)
[2020-10-27] MEDS: 0.9 % Sodium Chloride 1,000 ML 999 ML IV (09:53)
[2020-10-27] MEDS: ondansetron HCL 4 MG/2 ML VIAL IVPUSH (09:53)
[2020-10-27] MEDS: HYDROmorphone HCl 0.5 MG/0.5 ML SYRINGE IVPUSH ×2 (09:54→10:44)
[2020-10-27 10:12] VITALS: BP 124/81; PULSE 70; RESP 18; O2SAT 98
[2020-10-27 10:13] LABS: Glucose Urine UA NEG (NEG); Leukocyte Esterase Urine NEG (NEG); Nitrite Urine NEG (NEG); Urine Blood TRACE (NEG); Urine Ketones NEG (NEG); Urine Protein NEG (NEG-TRACE)
[2020-10-27 10:15] LABS: Appearance Urine CLEAR; Color Urine YELLOW
[2020-10-27 10:17] LABS: UPreg QC Valid YES; Urine Pregnancy NEGATIVE (NEGATIVE)
[2020-10-27 10:24] LABS: Mucus Urine TRACE /LPF; RBC Urine 0-2 /HPF (0); Squamous Epithelial Cell Urine 2+ /LPF; WBC Urine 0-2 /HPF (0-4)
[2020-10-27 10:33] LABS: Alanine Aminotransferase 11 U/L (0-31); Albumin Level 4.6 g/dL (3.5-5.0); Alkaline Phosphatase 83 U/L (39-117); Anion Gap 16 (12-20); Aspartate Amino Transferase 18 U/L (5-31); Blood Urea Nitrogen 10 mg/dL (9-16); Calcium 9.9 mg/dL (8.4-10.2); Carbon Dioxide 22 mmol/L (22-29); Chloride 107 mmol/L (96-108); Creatinine Clr Calc Pharmacy 79.3; Estimated Glomerular Filt Rate > 60; Glucose Random 97 mg/dL (60-115); Potassium 3.9 mmol/l (3.3-5.1); Sodium 141 mmol/L (135-145); Total Protein 7.5 g/dL (6.5-8.0)
--- NOTE | 2020-10-27 12:39 | ED.FEMALEGU ---
HPI - Female Genitourinary General Chief complaint: Vaginal Bleeding Stated complaint: vaginal bleeding Time Seen by Provider: 10/27/20 09:12 Source: patient Mode of arrival: ambulatory Limitations: no limitations History of Present Illness HPI Narrative: Right-sided pelvic pain and vaginal bleeding since yesterday. Has similar episode last month was here. Today was seen at her rn social services office however given her pain she was sent to emergency room. MD elicited complaint: vaginal bleeding Onset (ago): day(s) Female Urogenital Radiation: Non-Radiating Severity scale (1-10): 9 Consistency: constant Vaginal discharge: none Associated symptoms: denies other symptoms Sexual activity: No Patient : No Related Data Home Medications Medication Instructions Recorded Confirmed tizanidine [Zanaflex] 6 mg PO TID 07/12/20 08/30/20 hydrocodone 5 mg-acetaminophen 325 1 - 2 tab PO Q4H PRN 07/27/20 08/30/20 mg tablet Previous Rx's Medication Instructions Recorded oxycodone-acetaminophen [Percocet] 1 tab PO Q4-6H PRN #24 tab 07/13/20 lidocaine 5 % topical patch 2 patch TOPICAL DAILY 30 Days #60 08/30/20 patch ondansetron 4 mg PO Q8H PRN #20 tab 09/20/20 hydrocodone 5 mg-acetaminophen 325 1 tab PO Q6H PRN #12 tab 09/28/20 mg tablet omeprazole 20 mg capsule,delayed 20 mg PO DAILY 30 Days #30 cap 10/01/20 release hydrocodone-acetaminophen [[place]] 1 tab PO BID PRN 3 Days #10 tab 10/27/20 ibuprofen 800 mg PO BID PRN #30 tab 10/27/20 oxycodone 5 mg PO BID PRN #10 tab 10/27/20 Allergies Allergy/AdvReac Type Severity Reaction Status Date / Time Sulfa (Sulfonamide Allergy Unknown Hives Verified 10/27/20 08:14 Antibiotics) [SULFA (SULFONAMIDE ANTIBIOTICS)] Review of Systems Review of Systems: Constitutional: No Weight loss, No Fever, No Chills, No Night Sweats, No Fatigue, No Malaise ENT/Mouth: No Hearing loss, No Ear Pain, No Nasal Congestion, No Sinus Pain, No Hoarseness, No sore throat, No Rhinorrhea, No Swallowing Difficulty Eyes: No Eye Pain, No Swelling, No Redness, No Foreign Body, No Discharge, No Vision Changes Cardiovascular: No Chest Pain, No SOB, No Dyspnea on Exertion, No Orthopnea, No Edema, No Palpitations Respiratory: No Cough, No Sputum, No Wheezing, No Smoke Exposure, No Dyspnea Gastrointestinal: No Nausea, No Vomiting, No Diarrhea, No Constipation, + abdominal Pain, No Hematochezia, No Melena Genitourinary: + irregular bleeding, No Dysuria, No Urinary Frequency, No Hematuria, No Urinary Incontinence, No Urgency, No Flank Pain, No Urinary Flow Changes, No Hesitancy Musculoskeletal: No joint pain, No Myalgias, No Joint Swelling Skin: No Skin Lesions, No rash Neuro: No Weakness, No Numbness, No Paresthesias, No Loss of Consciousness, No Dizziness, No Headache Psych: No Social Issues Heme/Lymph: No Bruising, No Bleeding,No Lymphadenopathy Endocrine: No Polyuria, No Polydipsia, No Temperature Intolerance Yes all other systems are reviewed and are negative [facility] Past Medical History Medical History Abnormal CT of the abdomen Chronic pain syndrome Sonia-Danlos syndrome type III Postlaminectomy syndrome, cervical Right lower quadrant pain Spondylosis of cervical spine Umbilical hernia Surgical History History of arthroscopy of right knee History of bilateral fallopian tube excision History of cervical discectomy (~08/2015) History of cholecystectomy History of wisdom tooth extraction Family History Family History Father Diabetes Mother No problems noted. Social History Social History Household Members: Significant Other and Children Alcohol intake: current Alcohol intake frequency: a few times a week Smoking Status: Former smoker Advance Directives: No Advance Directives Information Provided: Yes service: No Current occupational status: employed Physical Exam Vital Signs: Vital Signs: Last Vital Signs Temp 97.9 F 10/27/20 09:22 Pulse 70 10/27/20 10:12 Resp 18 10/27/20 10:12 BP 124/81 10/27/20 10:12 Pulse Ox 98 10/27/20 10:12 Body Mass Index 22.4 Reviewed Const: General: healthy appearing; No intoxicated appearing Nutritional Appearance: average body habitus Orientation/consciousness: patient oriented x3 HENMT: Head: Yes normal to inspection Ears: hearing grossly normal bilaterally Eyes: General: appearance normal, both eyes and all related structures Visual Hernández: normal visual hernández by confrontation Neck: Neck: Yes normal visual inspection, No positive Brudzinski's sign, No positive Kernig's sign and No tender Thyroid: Thyroid normal Chest: Chest palpation & inspection: normal inspection of the chest Resp: Effort & Inspection: normal respiratory effort Auscultation: clear to auscultation bilaterally Cardio: Jugular venous distension: no JVD Rate: regular rate Rhythm: regular rhythm Heart sounds: S1 normal heart sound present and S2 normal heart sound present GI: Inspection: Yes normal to inspection Palpation (GI): Soft to palpation Percussion: Yes normal to percussion Auscultation: normal bowel sounds Abdomen image: 1. : General: Yes no CVA tenderness Back/Spine/Pelvis: Back: no CVA tenderness Skin: General skin exam: no rashes or lesions noted Neuro: General: patient oriented x3 Extrem: General: Yes normal to inspection Course Course Course Narrative: Labs overall stable. Repeat ultrasound shows Small uterine fibroid otherwise unremarkable exam. No evidence of torsion. Has been resting comfortable. She is due for her menstrual cycle this upcoming Friday a month ago similar type of pain for which she was evaluated in the emergency room had ultrasound as well as CT scan showed no acute abnormalities and this was also around the time where she had her menstrual cycle I question dysmenorrhea as cause of her pain. Given her stable exam and laboratory workup I did have a discussion with her and shared decision-making agreeable to defer on the CT of the abdomen pelvis at this time as I do not suspect this to be an acute abdomen or appendicitis which was ruled out last time which she has same type of pain. She will follow-up with her rn social services. At this time I did encourage her to start taking ibuprofen a day or 2 before she starts having her menses cycle to see if that helps. Clear return follow-up instructions provided. A grooved pain. Stable for discharge. MDM - Female Genitourinary Differential Diagnosis Differential diagnosis: Likely urinary tract infection, ovarian cyst, ruptured ovarian cyst and dysmenorrhea; Unlikely bacterial vaginosis, trichomoniasis, cervicitis, vaginitis, cyst of Bartholin's gland and cystitis Medical Records Attestation: I reviewed the patient's medical records. Lab Data Attestation: I reviewed the patient's lab results. Result diagrams: 10/27/20 09:44 10/27/20 09:44 Labs: Lab Results 10/27/20 10/27/20 10/27/20 Range/Units 09:41 09:44 09:44 WBC 9.8 (4.8-10.8) X10*3/uL RBC 4.43 (4.20-5.50) X10*6/uL Hgb 14.4 (12.0-16.0) g/dl Hct 40.7 (37-47) % MCV 91.9 (80-98) fL MCH 32.5 (27.0-33.0) pg MCHC 35.4 H (31.0-35.0) g/dl RDW 11.6 (11.0-16.0) % Plt Count 331 (160-400) X10*3/uL MPV 9.4 (9.4-12.3) fL Immature Gran % (Auto) 0.2 (0.0-0.4) % Neut % (Auto) 71.0 (45-73) % Lymph % (Auto) 20.2 (20-40) % [place] % (Auto) 7.4 (2-11) % Eos % (Auto) 0.6 (0-4) % Baso % (Auto) 0.6 (0-2) % Lymph # (Auto) 2.0 (1.2-4.9) X10*3/uL [place] # (Auto) 0.7 (0.1-1.2) X10*3/uL Eos # (Auto) 0.1 (0.0-0.4) X10*3/uL Baso # (Auto) 0.1 (0.0-0.2) X10*3/uL Abs Immat Gran (auto) 0.02 (0.00-0.03) X10*3/uL Absolute Neuts (auto) 6.9 (2.0-8.3) X10*3/uL Absolute Nucleated RBC 0.000 (0.0-0.012) X10*3/uL Nucleated RBC % (auto) 0.0 (0.0-0.2) /100WBC Sodium 141 (135-145) mmol/L Potassium 3.9 (3.3-5.1) mmol/l Chloride 107 (96-108) mmol/L Carbon Dioxide 22 (22-29) mmol/L Anion Gap 16 (12-20) BUN 10 (9-16) mg/dL Creatinine 0.78 (0.5-1.4) mg/dL Estim Creat Clear Calc 79.3 Estimated GFR > 60 Random Glucose 97 (60-115) mg/dL Calcium 9.9 (8.4-10.2) mg/dL Total Bilirubin 1.0 (0.0-1.0) mg/dL AST 18 (5-31) U/L ALT 11 (0-31) U/L Alkaline Phosphatase 83 (39-117) U/L Total Protein 7.5 (6.5-8.0) g/dL Albumin 4.6 (3.5-5.0) g/dL Urine Color YELLOW Urine Appearance CLEAR Urine pH 7.0 (5.0-8.0) Ur Specific [place] 1.020 (1.005-1.025) Urine Protein NEG (NEG-TRACE) MG/DL Urine Glucose (UA) NEG (NEG) MG/DL Urine Ketones NEG (NEG) MG/DL Urine Blood TRACE (NEG) Urine Nitrite NEG (NEG) Ur Leukocyte Esterase NEG (NEG) Urine RBC 0-2 (0) /HPF Urine WBC 0-2 (0-4) /HPF Ur Squamous Epith Cells 2+ /LPF Urine Bacteria NONE /LPF Urine Mucus TRACE /LPF Urine Test NEGATIVE (NEGATIVE) Discharge Plan Discharge Clinical Impression: Pelvic pain in female, Dysmenorrhea Patient Disposition: Home, Self-Care Instructions: Dysmenorrhea (ED), Pelvic Pain (ED) Additional Instructions: Follow-up with her rn social services team as discussed Return if any concerns or worsening symptoms Thank you Prescriptions: New ibuprofen 800 mg tablet 800 mg PO BID PRN (Reason: pain) Qty: 30 RF: 0 oxycodone 5 mg tablet 5 mg PO BID PRN (Reason: pain) Qty: 10 RF: 0 hydrocodone-acetaminophen [[place]] 5-325 mg tablet 1 tab PO BID PRN (Reason: pain) 3 Days Qty: 10 RF: 0 No Action ondansetron 4 mg tablet,disintegrating 4 mg PO Q8H PRN (Reason: nausea and vomiting) Qty: 20 RF: 0 tizanidine [Zanaflex] 6 mg Capsule 6 mg PO TID RF: 0 oxycodone-acetaminophen [Percocet] 5-325 mg tablet 1 tab PO Q4-6H PRN (Reason: pain) Qty: 24 RF: 0 hydrocodone-acetaminophen 5-325 mg tablet 1 tab PO Q6H PRN (Reason: pain) Qty: 12 RF: 0 omeprazole 20 mg capsule,delayed release(DR/EC) 20 mg PO DAILY 30 Days Qty: 30 RF: 0 lidocaine 5 % adhesive patch,medicated 2 patch topical DAILY 30 Days Qty: 60 RF: 12 hydrocodone-acetaminophen 5-325 mg tablet 1 - 2 tab PO Q4H PRN (Reason: pain) RF: 0 Referrals: Elder Govea MD [Primary Care Provider] - 1 week Shravan Crowley MD [Physician] - 5 days Stand Alone Forms: Work/School Release Interventions: ED Discharge Assessment Last Done: 10/27/20 14:28 Discharge Date/Time: 10/27/20 14:29
== END 2020-10-27 14:29 | disposition home or self-care (01) ==
PROVIDERS: Nurse Practitioner Primary Care; Emergency Provider Emergency Medicine; PCP Internal Medicine
DX: R10.2 Pelvic and perineal pain (principal); N94.6 Dysmenorrhea, unspecified; D25.9 Leiomyoma of uterus, unspecified
CPT/HCPCS: 36415; 76830; 76856; 80053; 81001; 81025; 85025; 93975; 96361; 96374; 96375; 96376; 99283; 99284; J1170; J2405

== ENCOUNTER 2020-12-01 07:53 | Day surgery (SDC) | payer OTHER, SELFPAY ==
--- NOTE | 2020-11-30 08:40 | HO.ANESPROP2 ---
Documented by User: Katina Carolyn 11/30/20 08:43 HPI - Anesthesia Eval Consult details Narrative: 40yo F for Cervical Spinal Cord Simulation Trial Chronic opioids PMFSH Active Problems Active Problems: All Active Problems (Updated 10/28/20 @ 00:00 by Background Daemon) Pelvic pain in female (Acute) Umbilical hernia (Acute) Abnormal CT of the abdomen (Acute) Right lower quadrant pain (Acute) Chronic pain syndrome (Acute) Spondylosis of cervical spine (Acute) Postlaminectomy syndrome, cervical (Acute) Sonia-Danlos syndrome type III (Acute) S/P laparoscopic cholecystectomy (Acute) Gallstone (Acute) Past Medical History Medical History Abnormal CT of the abdomen Chronic pain syndrome Sonia-Danlos syndrome type III Postlaminectomy syndrome, cervical Right lower quadrant pain Spondylosis of cervical spine Umbilical hernia Family History Family History Father Diabetes Mother No problems noted. Surgical History Surgical History History of arthroscopy of right knee History of bilateral fallopian tube excision History of cervical discectomy (~08/2015) History of cholecystectomy History of wisdom tooth extraction Social History Social History Household Members: Significant Other and Children Alcohol intake: current Alcohol intake frequency: a few times a week Smoking Status: Former smoker Have you been hit, kicked, punched, or otherwise hurt by someone within the past year? If so, by whom?: No Advance Directives: No Advance Directives Information Provided: No Recently lost weight without trying: Unsure service: No Current occupational status: employed Meds Allergies Allergy/AdvReac Type Severity Reaction Status Date / Time Sulfa (Sulfonamide Allergy Unknown Hives Verified 10/27/20 08:14 Antibiotics) [SULFA (SULFONAMIDE ANTIBIOTICS)] Home Medications Medication Instructions Recorded Confirmed Last Taken Type tizanidine [Zanaflex] 6 mg PO TID 07/12/20 08/30/20 Unknown History hydrocodone 5 mg-acetaminophen 325 1 - 2 tab PO Q4H PRN 07/27/20 08/30/20 Unknown History mg tablet Exam Exam Date and Time: November 30, 2020 0840 Pertinent Lab Results Pertinent Lab Results: Laboratory Tests 10/27/20 10/27/20 09:44 09:44 WBC 9.8 Hgb 14.4 Hct 40.7 Plt Count 331 Sodium 141 Chloride 107 Carbon Dioxide 22 BUN 10 Creatinine 0.78 Assessment and Plan Assessment Anesthesia Assessment: Chart Reviewed Documented by User: Tyron Rich MD 12/01/20 08:31 [facility] Past Medical History Medical History Abnormal CT of the abdomen Chronic pain syndrome Sonia-Danlos syndrome type III Postlaminectomy syndrome, cervical Right lower quadrant pain Spondylosis of cervical spine Umbilical hernia Family History Family History Father Diabetes Mother No problems noted. Surgical History Surgical History History of arthroscopy of right knee History of bilateral fallopian tube excision History of cervical discectomy (~08/2015) History of cholecystectomy History of wisdom tooth extraction Social History Social History Household Members: Significant Other and Children Alcohol intake: current Alcohol intake frequency: a few times a week Smoking Status: Former smoker Have you been hit, kicked, punched, or otherwise hurt by someone within the past year? If so, by whom?: No Advance Directives: No Advance Directives Information Provided: No Recently lost weight without trying: Unsure service: No Current occupational status: employed Meds Allergies Allergy/AdvReac Type Severity Reaction Status Date / Time Sulfa (Sulfonamide Allergy Unknown Hives Verified 10/27/20 08:14 Antibiotics) [SULFA (SULFONAMIDE ANTIBIOTICS)] Home Medications Medication Instructions Recorded Confirmed Last Taken Type tizanidine [Zanaflex] 6 mg PO TID 07/12/20 08/30/20 Unknown History hydrocodone 5 mg-acetaminophen 325 1 - 2 tab PO Q4H PRN 07/27/20 08/30/20 Unknown History mg tablet Assessment and Plan Assessment Anesthesia Assessment: Anesthesia Plan Discussed Final Anesthetic Review NPO: Yes ASA Class: II Final Preanesthetic Review: No Changes in Pt Med Stat, Meds/Allgs Chart Reviewed, Consent Obtained/Reviewed and Anes Risks/Benef Reviewed Patient Risk: Low Procedure Risk: Low Anesthetic Plan Anesthetic Plan: MAC: Disposition: Standard PACU
[2020-11-30 13:14] VITALS: BMI 23.9
--- NOTE | ~2020-12-01 | FL_ITS ---
EXAMINATION: XR FLUOROSCOPY WITH IMAGES CLINICAL INFORMATION: Spinal stimulator trial COMPARISON: None. TECHNIQUE: Fluoroscopy performed by Dr. Isaac Ahumada. Fluoroscopy time: 5.9 minutes DAP: 11.9 Gycm2 Images: 3 FINDINGS: There are 2 stimulator electrode seen overlying the posterior aspect cervical canal with tips at level of upper C2. There is prior anterior cervical fusion hardware C5-C6 extending beyond field of view. FL/FL guidance in OR IMPRESSION: Fluoroscopy for pain management procedure.
--- NOTE | ~2020-12-01 | FL_ITS ---
EXAMINATION: XR FLUOROSCOPY WITH IMAGES CLINICAL INFORMATION: Spinal stimulator trial COMPARISON: Fluoroscopic spot images 12/01/2020 TECHNIQUE: Fluoroscopy performed by Dr. Isaac Ahumada. Fluoroscopy time: 0.1 minutes DAP: 0.034 Gycm2 Images: 2 FINDINGS: There are 2 stimulator electrode seen overlying the posterior aspect cervical canal with tips at level of upper C2. There is prior anterior cervical fusion hardware again noted lower cervical spine. FL/FL guidance in OR IMPRESSION: Fluoroscopy for pain management procedure.
[2020-12-01 08:24] VITALS: BP 129/84; PULSE 77; RESP 16; TEMP 37.1; O2SAT 97
[2020-12-01] MEDS: Lactated Ringers 1,000 ML 100 ML IVCONT (08:36)
--- NOTE | 2020-12-01 08:55 | MHC.SHP ---
Pre-Procedural Eval Section A The patient is an INPATIENT: No Changes since office visit: Yes Patient answered all questions The History & Physical has been completed within 30 days and I have reviewed it.: No Section B Chief Complaint: cervical post laminectomy Details of Present Illness: Ehler -Danlos Syndrome, axial cervical pain Relevant Family History (Specify if Yes): Yes Relevant Social History: None Present Medications: see Short Stay Collaborative assessment Medical History: Significant History History of Previous Operations: Relevant previous surgery/procedure and date(s) Allergies: Allergies Allergy/AdvReac Type Severity Reaction Status Date / Time Sulfa (Sulfonamide Allergy Unknown Hives Verified 10/27/20 08:14 Antibiotics) [SULFA (SULFONAMIDE ANTIBIOTICS)] Review of Systems Sugical H&P ROS: Negative: Constitution, Cardiovascular, Respiratory, Neurological, Psychiatric, Hem-Onc, Allergic/Immunologic, Gastrointestinal, Genitourinary, Integumentary, Endocrine and Eyes/Ears/Nose/Throat and Yes, Specify: Musculoskeletal (joints, ligaments streachability) Exam Surgical H&P Exam: Normal: HEENT, Normal: Heart, Normal: Lungs, Normal: Extremities, Normal: Abdomen, Normal: Skin and Normal: Neurological Plan Diagnosis/Plan: Unchanged I have reviewed the history and physical and performed a pertinent physical examination on my patient. No changes have occurred unless specified.
[2020-12-01 11:00] VITALS: BP 110/68; PULSE 72; RESP 16; TEMP 36.2; O2SAT 100
--- NOTE | 2020-12-01 11:11 | PM.OP ---
Brief Operative Note Date of Service: 12/01/20 Pre-op diagnosis: cervicalgia. postlaminectomy syndrome cervical spine. Post-op diagnosis: same Procedure: Nevro SCS trial Implants: none permanent - 2 epidural leads in the thoracic and cervical spine. Surgeon: Isaac Ahumada MD Anesthesia: MAC Estimated blood loss (mL): 1 Condition: stable Disposition: PACU
[2020-12-01 11:15] VITALS: BP 131/83; PULSE 64; RESP 18; O2SAT 100
[2020-12-01 11:30] VITALS: BP 137/78; PULSE 54; RESP 18; O2SAT 100
[2020-12-01] MEDS: HYDROcodone Bit/Acetam 5/325 TABLET 1 TAB PO (11:41)
[2020-12-01 11:45] VITALS: BP 146/81; PULSE 59; RESP 18; O2SAT 100
[2020-12-01 12:05] VITALS: BP 138/88; PULSE 67; TEMP 36.4; O2SAT 100
--- NOTE | 2020-12-01 12:22 | P.OP_ITS ---
Operative Note Operative Note Date of Service: 12/01/20 Narrative: After obtaining informed consent patient was brought to the operating room, SHE was positioned prone on operating table, [place] [employer] monitors were applied and patient was deeply sedated. The patient was taken inside of the operating room where she was positioned prone operating table. Time-out was performed delineating correct site, side, the nature of the procedure, patient's allergy, preoperative antibiotic if needed. All operating room staff was participating in OR time-out procedure. Patient's entire back was prepped with ChloraPrep twice and draped with full body fenestrated drape. Sterilely draped C-arm was brought over operating field and sqare picture of T9 AND TT10 vertebrae as were demonstrated on the screen. Attention FIRST was concentrated on the [id number] interspace. The location of the projection of the right pedicle center of the T10 vertebra was found on the skin using C-arm. This location was injected with mixture of lidocaine 2% and Marcaine 0.5% 5 cc. After that 11 blade was used to make a chano on the skin. 10 cm 14 gauge curved introducer epidural needle was inserted through the chano and advanced to [id number] interspace. The advancement of the needle was performed on anterior posterior and lateral views. Guitar wire and loss of resistance technique were used to locate epidural space. When guitar wire was spread in the epidural fashion, epidural lead was inserted through the skin and it was advanced to C2 position SLIGHTLY LEFT OF THE MIDLINE. After that location of the projection of the LEFT pedicle center of the T10 vertebra was found on the skin using C-arm. This location was injected with mixture of lidocaine 2% and Marcaine 0.5% 5 cc. After that 11 blade was used to make a chano on the skin. 10 cm 14 gauge curved introducer epidural needle was inserted through the chano and advanced to T9-T10 EPIDURAL INTERSPACE. The advancement of the needle was performed on anterior posterior and lateral views. Guitar wire and loss of resistance technique were used to locate epidural space. When guitar wire was spread in the epidural fashion, epidural lead was inserted through the needle and advanced to the C2-C3 epidural interspace SLIGHTLY CLOSER TO MIDLINE but still on the left. At this moment IMPEDANCE was checked . After satisfactory position of the leads were established the needles were withdrawn, the stylette wires were removed from the epidural leads. The anchoring devices were dislodged on the leads and advanced to the level of the skin. The anchoring devices were sutured with two 0-0 silk sutures to the skin of the patient. The leads were connected to testing device. Bacitracin ointment was applied to the entrance point of bilateral needles. Sterile dressing was applied to the patient's back. The testing device was also taped to the patient's back. Upon completion of the procedure the patient was taken to PACU where SHE recovered uneventfully.
== END 2020-12-01 12:30 | disposition home or self-care (01) ==
PROVIDERS: PCP Internal Medicine; Visit Provider Anesthesiology
PROC: (CPT 63650; principal; 2020-12-01 09:00)
DX: M96.1 Postlaminectomy syndrome, not elsewhere classified (principal); Q79.62 Hypermobile Ehlers-Danlos syndrome; M47.812 Spondylosis without myelopathy or radiculopathy, cervical region; G89.4 Chronic pain syndrome; M43.22 Fusion of spine, cervical region; I10 Essential (primary) hypertension; Z88.2 Allergy status to sulfonamides
CPT/HCPCS: 63650 ×2; C1713; C1778; C1897; J0690; J2250; J3010

== ENCOUNTER → 2020-12-07 11:08 | Outpatient (BNVA) | payer OTHER, SELFPAY | PROVIDERS: PCP Internal Medicine; Visit Provider Anesthesiology ==

== ENCOUNTER → 2020-12-21 16:20 | Outpatient (BNVA) | payer OTHER, SELFPAY | PROVIDERS: PCP Internal Medicine; Visit Provider Anesthesiology ==

== ENCOUNTER 2020-12-29 07:56 | Outpatient (REF) | payer OTHER, SELFPAY ==
--- NOTE | ~2020-12-29 | MR_ITS ---
EXAMINATION: MR CERVICAL SPINE WITHOUT CONTRAST CLINICAL INFORMATION: Spondylosis without myelopathy. Self-reported cervical spine surgery 6 years ago. Self-reported neck pain and left arm pain. COMPARISON: MRI cervical spine 03/10/2020. TECHNIQUE: MRI of the cervical spine was obtained using routine sequences without contrast. FINDINGS: VERTEBRAL BODIES AND PARASPINAL SOFT TISSUES: Susceptibility artifact consistent with the presence of anterior plate and screw fixation at the levels of C5-C6-C7 is noted. Straightening of the cervical lordosis is visualized and is accompanied by 2 mm degenerative type anterolisthesis of C3 on C4 unchanged compared with 03/10/2020. CERVICOMEDULLARY JUNCTION AND VISUALIZED POSTERIOR FOSSA: Normal. SPINAL LEVELS: C2-C3: Normal. No central or foraminal stenoses. C3-C4: 2 mm grade 1 anterolisthesis. Unchanged mild bilateral facet hypertrophic changes. No significant central or foraminal stenoses. C4-C5: No change compared with 03/10/2020. Mild (less than 50%) bilateral foraminal stenoses secondary to bilateral mild disc-osteophyte complexes with findings slightly more pronounced on the right. C5-C6: No central or foraminal stenoses. C6-C7: No central or foraminal stenoses. C7-T1: Normal intervertebral disc. No central or foraminal stenoses. The cervical spinal cord is normal in caliber, contour and signal intensity. Normal flow-related signal intensity is noted within the visualized components of the cervical carotid and vertebral artery systems. No cervical lymphadenopathy noted. No prevertebral fluid collections identified. MR/MR cervical spine wo con IMPRESSION: 1. No change compared with 03/10/2020. 2. Status post C5-C6-C7 anterior cervical discectomy and interbody fusion. 3. Unchanged C4-C5 mild bilateral foraminal stenoses without direct nerve root impingement. Elsewhere in the cervical spine, no significant central or foraminal stenoses are noted. 4. Unchanged C3-C4 mild grade 1, 2 mm degenerative type anterolisthesis.
== END 2020-12-29 07:57 | disposition home or self-care (01) ==
LOC: HO.MRI 07:56
PROVIDERS: Visit Provider Anesthesiology
DX: M47.812 Spondylosis without myelopathy or radiculopathy, cervical region (principal); M96.1 Postlaminectomy syndrome, not elsewhere classified; Q79.62 Hypermobile Ehlers-Danlos syndrome
CPT/HCPCS: 72141

== ENCOUNTER 2021-01-23 09:12 | Outpatient (REF) | payer OTHER, SELFPAY ==
--- NOTE | ~2021-01-23 | XR_ITS ---
EXAMINATION: XR CERVICAL SPINE CLINICAL INFORMATION: Cervical spondylosis with myelopathy. COMPARISON: Most recent cervical spine MRI dated 12/29/2020. TECHNIQUE: AP, lateral, flexion, and extension views of the cervical spine were obtained. FINDINGS: Anterior fusion hardware redemonstrated at C5 through C7. No acute hardware or osseous fracture. No perihardware lucency to suggest loosening or infection. Bony fusion of C2-C3 vertebral bodies and posterior elements is redemonstrated. No loss of vertebral body height. No loss of intervertebral disc height. No osseous erosion. Grade 1 anterolisthesis of C3 on C4 and C4 on C5 with flexion. This is reduced in neutral positioning and with extension. Unremarkable prevertebral soft tissues. XR/XR cervical spine 4V IMPRESSION: 1. Anterior fusion hardware at C5 through C7 without evidence of hardware complication. 2. Bony fusion of C2 on C3 is unchanged. 3. Grade 1 anterolisthesis of C3 on C4 and C4 on C5 with flexion. This is reduced in neutral and extension positioning.
== END 2021-01-23 09:13 | disposition home or self-care (01) ==
LOC: HO.XRAY 09:12
PROVIDERS: PCP Internal Medicine; Visit Provider Orthopaedic Surgery
DX: M47.812 Spondylosis without myelopathy or radiculopathy, cervical region (principal); M43.12 Spondylolisthesis, cervical region
CPT/HCPCS: 72050

== ENCOUNTER → 2021-04-13 12:55 | Outpatient (BNVA) | payer OTHER, SELFPAY | PROVIDERS: Visit Provider Obstetrics & Gynecology ==

== ENCOUNTER 2021-05-03 07:42 | Outpatient (REF) | payer OTHER, SELFPAY ==
--- NOTE | ~2021-05-03 | MM_ITS ---
EXAMINATION: MM SCREENING DIGITAL BREAST TOMOSYNTHESIS, BILATERAL CLINICAL INFORMATION: Screening. Asymptomatic. The lifetime risk of breast cancer based on the Tyrer-Cuzick Model is 12%. COMPARISON: Outside mammography: 11/27/2016 ([facility], [place]). TECHNIQUE: Digital breast tomosynthesis is performed in both the craniocaudal and mediolateral oblique views along with computer-aided detection (CAD). Synthesized 2D images are generated from the tomosynthesis. FINDINGS: There are scattered areas of fibroglandular density (ACR BI-RADS breast composition Category b). Parenchymal pattern is similar to prior outside exam. Small parenchymal asymmetries posterior central breast on CC views are stable. There is no architectural abnormality. No abnormal calcifications. The axilla and skin contours are unremarkable. No significant changes. MM/MM tomosynthesis screening BI IMPRESSION: No mammographic evidence of malignancy. ASSESSMENT: BI-RADS 2: Benign RECOMMENDATION: Routine annual mammography screening. This patient's information was entered into a reminder system with a target due date for their next mammogram.
== END 2021-05-03 07:43 | disposition home or self-care (01) ==
LOC: HO.MAMMO 07:42
PROVIDERS: PCP Internal Medicine; Visit Provider Obstetrics & Gynecology
DX: Z12.31 Encounter for screening mammogram for malignant neoplasm of breast (principal)
CPT/HCPCS: 77063; 77067

== ENCOUNTER 2021-05-18 13:45 | Outpatient (REF) | payer OTHER, SELFPAY ==
[2021-05-18 15:33] LABS: Hematocrit 42.5 % (37-47); Hemoglobin 14.8 g/dl (12.0-16.0); Mean Corpuscular HGB Conc 34.8 g/dl (31.0-35.0); Mean Corpuscular Hemoglobin 32.6 pg (27.0-33.0); Mean Corpuscular Volume 93.6 fL (80-98); Mean Platelet Volume 10.3 fL (9.4-12.3); Platelet Count 293 X10*3/uL (160-400); Red Blood Count 4.54 X10*6/uL (4.20-5.50); Red Cell Distribution Width 11.9 % (11.0-16.0); White Blood Count 8.8 X10*3/uL (4.8-10.8)
[2021-05-18 15:49] LABS: Alanine Aminotransferase 11 U/L (0-31); Alkaline Phosphatase 85 U/L (39-117); Anion Gap 15 (12-20); Aspartate Amino Transferase 17 U/L (5-31); Bilirubin Total 1.3 mg/dL (0.0-1.0); Blood Urea Nitrogen 8 mg/dL (9-16); C Reactive Protein 0.13 mg/dL (< or = 0.50); Calcium 10.8 mg/dL (8.4-10.2); Carbon Dioxide 24 mmol/L (22-29); Chloride 106 mmol/L (96-108); Estimated Glomerular Filt Rate > 60; Glucose Random 94 mg/dL (60-115); Lipase 28 U/L (8-78); Sodium 141 mmol/L (135-145)
[2021-05-18 16:07] LABS: TSH reflex Free T4 1.65 uIU/mL (0.32-4.0)
[2021-05-19 14:05] LABS: H Pylori Breath Test NOT DETECTED (NOT DETECTED)
[2021-05-24 11:06] LABS: Transglutaminase Ab IgG 7 U/mL; Transglutaminase IgA 1 U/mL
== END 2021-05-18 13:46 | disposition home or self-care (01) ==
LOC: HO.LAB 13:45
PROVIDERS: PCP Internal Medicine; Visit Provider Nurse Practitioner Family
DX: R10.11 Right upper quadrant pain (principal); R19.7 Diarrhea, unspecified; K58.9 Irritable bowel syndrome, unspecified; R14.0 Abdominal distension (gaseous); K21.9 Gastro-esophageal reflux disease without esophagitis
CPT/HCPCS: 36415; 80053; 83013; 83516; 83690; 84443; 85027; 86140

== ENCOUNTER 2021-05-21 09:16 | Outpatient (REF) | payer OTHER, SELFPAY ==
[2021-05-21 10:55] LABS: CDiff Gene PCR NEGATIVE (Negative)
[2021-05-21 11:10] LABS: Leukocytes Stool Qualitative NEGATIVE (NEGATIVE)
== END 2021-05-21 09:17 | disposition home or self-care (01) ==
LOC: HO.LNP 09:16
PROVIDERS: Visit Provider Nurse Practitioner Family
DX: R19.7 Diarrhea, unspecified (principal)
CPT/HCPCS: 87045; 87046; 87177; 87209; 87493; 89055

== ENCOUNTER 2021-06-13 14:44 | Outpatient (REF) | payer OTHER, SELFPAY ==
[2021-06-13 16:48] LABS: Bilirubin Direct 0.3 mg/dL (0.0-0.5); Calcium 9.9 mg/dL (8.4-10.2)
== END 2021-06-13 14:45 | disposition home or self-care (01) ==
LOC: HO.LAB 14:44
PROVIDERS: PCP Internal Medicine; Visit Provider Nurse Practitioner Family
DX: E83.52 Hypercalcemia (principal); R10.31 Right lower quadrant pain; K21.9 Gastro-esophageal reflux disease without esophagitis; R19.7 Diarrhea, unspecified
CPT/HCPCS: 36415; 82248; 82310